=== PATIENT | male | born 1980 | race Caucasian/White ===

== ENCOUNTER 2022-04-01 17:00 | Emergency (ER) | payer MEDICAID ==
[~2022-04-01] VITALS: Ht 147.3 cm; Wt 61.2 kg
[2022-04-01 17:14] VITALS: BP 116/74
--- NOTE | 2022-04-01 17:21 | NUR ---
PT C/O BACK PAIN X2 WEEKS AFTER LIFTING BOTTLES.
[2022-04-01] MEDS ORDERED: KETOROLAC 60 MG/2 ML VIAL IM ONE ×2 (17:45→17:51)
[2022-04-01] MEDS ORDERED: IBUP-2213 PO (18:27)
[2022-04-01] MEDS ORDERED: ACET-8386 PO (18:27)
[2022-04-01 18:56] VITALS: BP 124/88
--- NOTE | 2022-04-01 18:57 | NUR ---
Patient discharged with v/s stable. Written and verbal after care instructions given and explained. Patient alert, oriented and verbalized understanding of instructions. Ambulatory with steady gait. All questions addressed prior to discharge. ID band removed. Patient advised to follow up with PMD. Rx of norco,motrin given. Patient educated on indication of medication including possible reaction and side effects. Opportunity to ask questions provided and answered.
== END 2022-04-01 18:57 | disposition home or self-care (01) ==
LOC: MED 17:00
DX: M54.50 Low back pain, unspecified (principal); E11.9 Type 2 diabetes mellitus without complications; F17.200 Nicotine dependence, unspecified, uncomplicated
CPT/HCPCS: 96372; 99283; J1885

== ENCOUNTER 2022-05-05 07:52 | Emergency (ER) | payer MEDICAID ==
[~2022-05-05] VITALS: Ht 158.8 cm; Wt 58.6 kg
[~2022-05-05 07:52] MED LIST: ACET-8386 PO; IBUP-2213 PO
[2022-05-05 08:03] VITALS: BP 132/74
[2022-05-05] MEDS ORDERED: NACL 0.9% 2,000 ML IV ONE (08:30)
[2022-05-05 09:07] LABS: BASOPHILS % (AUTO) 0.7 % (0.0-2.0); EOSINOPHILS # (AUTO) 0.1 K/uL (0-0.4); HEMOGLOBIN 15.7 g/dL (12.0-18.0); LYMPHOCYTES # (AUTO) 1.5 K/uL (2.0-11.5); LYMPHOCYTES % (AUTO) 24.4 % (20.5-51.1); MEAN CORPUSCULAR HEMOGLOBIN 32 pg (27-31); MEAN CORPUSCULAR HGB CONC 35 g/dL (33-37); MEAN CORPUSCULAR VOLUME 91.9 fL (80-94); MONOCYTES # (AUTO) 0.3 K/uL (0.8-1.0); MONOCYTES % (AUTO) 5.2 % (1.7-9.3); NEUTROPHILS # (AUTO) 4.1 K/uL (1.8-7.7); NEUTROPHILS % (AUTO) 67.7 % (42.2-75.2); PLATELET COUNT (AUTO) 192 K/uL (140-450); RED CELL DISTRIBUTION WIDTH 12.7 % (11.6-13.7); WHITE BLOOD COUNT (AUTO) 6.1 K/uL (4.8-10.8)
[2022-05-05 09:25] LABS: ALBUMIN 3.1 g/dL (3.4-5.0); ANION GAP 13.6 (8-16); CARBON DIOXIDE 28.2 mmol/L (21-32); CREATININE 0.8 mg/dL (0.6-1.3); POTASSIUM 3.8 mmol/L (3.5-5.1); TOTAL BILIRUBIN 0.5 mg/dL (0.0-1.0)
[2022-05-05] MEDS ORDERED: INSULIN REGULAR, HUMAN 100 UNIT/ML VIAL SUBQ ONE (09:50)
[2022-05-05 10:39] LABS: APPEARANCE,URINE CLEAR (CLEAR); BILIRUBIN,URINE NEGATIVE (NEGATIVE); BLOOD, URINE NEGATIVE (NEGATIVE); COLOR,URINE YELLOW (YELLOW); LEUKOCYTE ESTERASE ,URINE TRACE (NEGATIVE); NITRITE, URINE NEGATIVE (NEGATIVE); PH,URINE 5.5 (5.0-9.0); UGLUCOSE 3+ (NEGATIVE)
[2022-05-05 10:52] LABS: RBC,URINE 0-5 /HPF (0-5); WBC,URINE 0-5 /HPF (0-5); YEAST,URINE Moderate /HPF (None Seen)
[2022-05-05] MEDS ORDERED: NYST15CR10 TP (11:08)
[2022-05-05 11:58] VITALS: BP 122/70
== END 2022-05-05 11:59 | disposition home or self-care (01) ==
LOC: MED 07:52
DX: E11.65 Type 2 diabetes mellitus with hyperglycemia (principal); N48.1 Balanitis; F17.210 Nicotine dependence, cigarettes, uncomplicated; Z79.899 Other long term (current) drug therapy
CPT/HCPCS: 71045; 80053; 81001; 82009; 82803; 82948; 85025; 96360; 96361; 96372; 99284; J1815

== ENCOUNTER 2023-12-18 11:49 | Emergency (ER) | payer MEDICAID ==
[~2023-12-18] VITALS: Ht 157.5 cm; Wt 59.1 kg
[~2023-12-18 11:49] MED LIST changes: -ACET-8386 PO; +ACET-8905 PO; +NYST15CR10 TP
[2023-12-18 12:04] VITALS: BP 123/83; PULSE 83; RESP 18; TEMP 99.1; O2SAT 96
[2023-12-18 12:31] LABS: BASOPHILS # (AUTO) 0.1 K/uL (0.00-0.22); BASOPHILS % (AUTO) 0.6 % (0.0-2.0); EOSINOPHILS # (AUTO) 0.1 K/uL (0-0.4); EOSINOPHILS % (AUTO) 1.3 % (0.0-4.0); HEMATOCRIT 46.9 % (36-52); HEMOGLOBIN 16.2 g/dL (12.0-18.0); LYMPHOCYTES # (AUTO) 2.4 K/uL (2.0-11.5); LYMPHOCYTES % (AUTO) 22.2 % (20.5-51.1); MEAN CORPUSCULAR HEMOGLOBIN 32 pg (27-31); MEAN CORPUSCULAR HGB CONC 35 g/dL (33-37); MEAN CORPUSCULAR VOLUME 93.2 fL (80-94); MONOCYTES # (AUTO) 0.6 K/uL (0.8-1.0); MONOCYTES % (AUTO) 5.1 % (1.7-9.3); NEUTROPHILS # (AUTO) 7.6 K/uL (1.8-7.7); NEUTROPHILS % (AUTO) 70.8 % (42.2-75.2); PLATELET COUNT (AUTO) 253 K/uL (140-450); RED BLOOD CELL COUNT(AUTO) 5.03 MIL/uL (4.20-6.10); RED CELL DISTRIBUTION WIDTH 12.8 % (11.6-13.7); WHITE BLOOD COUNT (AUTO) 10.8 K/uL (4.8-10.8)
[2023-12-18 12:42] LABS: ANION GAP 11.9 (8-16); CALCIUM 8.4 mg/dL (8.5-10.1); CARBON DIOXIDE 27.2 mmol/L (21-32); CREATININE 1.3 mg/dL (0.6-1.3); POTASSIUM 4.1 mmol/L (3.5-5.1)
[2023-12-18 12:45] LABS: ALANINE AMINOTRANSFERASE 16 U/L (12-78); ALBUMIN 3.5 g/dL (3.4-5.0); ALKALINE PHOSPHATASE 151 U/L (50-136); BILIRUBIN,DIRECT 0.1 mg/dL (0.0-0.3); LIPASE 56 U/L (16-77); TOTAL BILIRUBIN 0.3 mg/dL (0.0-1.0); TOTAL PROTEIN, SERUM 7.5 g/dL (6.4-8.2)
[2023-12-18 12:47] LABS: APPEARANCE,URINE CLEAR (CLEAR); BILIRUBIN,URINE NEGATIVE (NEGATIVE); BLOOD, URINE NEGATIVE (NEGATIVE); COLOR,URINE YELLOW (YELLOW); LEUKOCYTE ESTERASE ,URINE NEGATIVE (NEGATIVE); NITRITE, URINE NEGATIVE (NEGATIVE); PROTEIN,URINE NEGATIVE (NEGATIVE); UGLUCOSE 3+ (NEGATIVE); UROBILINOGEN,URINE 0.2 EU/dL (0.2 - 1)
[2023-12-18 12:55] LABS: ASPARTATE AMINOTRANSFERASE 0 U/L (15-37)
[2023-12-18] MEDS: NACL 0.9% 2,000 ML IV ONE (12:55)
[2023-12-18] MEDS: INSULIN REGULAR, HUMAN 100 UNIT/ML VIAL IV ONE (13:02)
[2023-12-18 13:04] LABS: ACETONE, SERUM Negative (NEGATIVE)
[2023-12-18 14:56] VITALS: BP 104/66; PULSE 70; RESP 18; TEMP 98.8; O2SAT 96
== END 2023-12-18 14:54 | disposition home or self-care (01) ==
LOC: MED 11:49
DX: E10.65 Type 1 diabetes mellitus with hyperglycemia (principal); R03.0 Elevated blood-pressure reading, without diagnosis of hypertension; Z79.1 Long term (current) use of non-steroidal anti-inflammatories (NSAID); Z79.899 Other long term (current) drug therapy
CPT/HCPCS: 36415; 80048; 80076; 81003; 82009; 82803; 82948; 83690; 85025; 96361; 96374; 99283; J1815; J7030

== ENCOUNTER 2024-01-02 17:48 | Emergency (ER) | payer MEDICAID ==
[~2024-01-02] VITALS: Ht 149.9 cm; Wt 58.7 kg
[2024-01-02 18:01] VITALS: BP 119/82; PULSE 87; RESP 20; TEMP 98.7; O2SAT 97
== END 2024-01-02 19:07 | disposition left against medical advice (07) ==
LOC: MED 17:48
DX: R53.1 Weakness (principal); Z53.21 Procedure and treatment not carried out due to patient leaving prior to being seen by health care provider

== ENCOUNTER 2024-02-05 17:50 | Emergency (ER) | payer MEDICAID ==
[~2024-02-05] VITALS: Ht 157.5 cm; Wt 57.3 kg
[2024-02-05 18:06] VITALS: BP 126/60; PULSE 76; RESP 15; TEMP 98.5; O2SAT 98
[2024-02-05] MEDS: NACL 0.9% 2,000 ML IV ONE (18:56)
[2024-02-05 19:06] LABS: BASOPHILS # (AUTO) 0.1 K/uL (0.00-0.22); BASOPHILS % (AUTO) 0.6 % (0.0-2.0); EOSINOPHILS # (AUTO) 0.1 K/uL (0-0.4); EOSINOPHILS % (AUTO) 1.2 % (0.0-4.0); HEMATOCRIT 46.1 % (36-52); HEMOGLOBIN 15.6 g/dL (12.0-18.0); LYMPHOCYTES # (AUTO) 2.3 K/uL (2.0-11.5); LYMPHOCYTES % (AUTO) 24.7 % (20.5-51.1); MEAN CORPUSCULAR HEMOGLOBIN 32 pg (27-31); MEAN CORPUSCULAR HGB CONC 34 g/dL (33-37); MEAN CORPUSCULAR VOLUME 94.6 fL (80-94); MONOCYTES # (AUTO) 0.6 K/uL (0.8-1.0); NEUTROPHILS # (AUTO) 6.4 K/uL (1.8-7.7); NEUTROPHILS % (AUTO) 67.5 % (42.2-75.2); PLATELET COUNT (AUTO) 216 K/uL (140-450); RED BLOOD CELL COUNT(AUTO) 4.87 MIL/uL (4.20-6.10); RED CELL DISTRIBUTION WIDTH 12.8 % (11.6-13.7); WHITE BLOOD COUNT (AUTO) 9.5 K/uL (4.8-10.8)
[2024-02-05 19:18] LABS: BILIRUBIN,URINE NEGATIVE (NEGATIVE); BLOOD, URINE NEGATIVE (NEGATIVE); COLOR,URINE YELLOW (YELLOW); LEUKOCYTE ESTERASE ,URINE TRACE (NEGATIVE); NITRITE, URINE NEGATIVE (NEGATIVE); PROTEIN,URINE NEGATIVE (NEGATIVE); UGLUCOSE 3+ (NEGATIVE); UROBILINOGEN,URINE 0.2 EU/dL (0.2 - 1)
[2024-02-05 19:20] VITALS: O2SAT 98
[2024-02-05 19:20] LABS: APPEARANCE,URINE HAZY (CLEAR)
[2024-02-05 19:21] LABS: RBC,URINE 0 /HPF (0-5)
[2024-02-05 19:22] LABS: BACTERIA,URINE 1+ /HPF (None Seen); MUCUS,URINE None Seen /LPF (None Seen); SQUAMOUS EPITHELIAL CELL,UR 0-3 (FEW) /LPF (0-3 (FEW)); WBC,URINE 0-5 /HPF (0-5)
[2024-02-05 19:22] LABS: CALCIUM 8.4 mg/dL (8.5-10.1); CARBON DIOXIDE 25.9 mmol/L (21-32); CREATININE 1.2 mg/dL (0.6-1.3); POTASSIUM 3.9 mmol/L (3.5-5.1)
[2024-02-05 19:27] LABS: ALANINE AMINOTRANSFERASE 24 U/L (12-78); ALBUMIN 3.2 g/dL (3.4-5.0); ALKALINE PHOSPHATASE 136 U/L (50-136); ASPARTATE AMINOTRANSFERASE 16 U/L (15-37); LIPASE 53 U/L (16-77); MAGNESIUM 1.5 mg/dL (1.8-2.4); PHOSPHORUS 3.6 mg/dL (2.5-4.9); TOTAL BILIRUBIN 0.3 mg/dL (0.0-1.0); TOTAL PROTEIN, SERUM 7.1 g/dL (6.4-8.2)
[2024-02-05 19:31] LABS: FLU A ANTIGEN negative (NEGATIVE); FLU B ANTIGEN negative (NEGATIVE)
[2024-02-05 19:36] VITALS: PULSE 81; O2SAT 96
[2024-02-05] MEDS: INSULIN REGULAR, HUMAN 100 UNIT/ML VIAL IVP ONE (20:04)
[2024-02-05] MEDS: POTASSIUM CHLORIDE 20% 40 MEQ/15 ML UDC PO ONE (20:05)
[2024-02-05] MEDS: ACETAMINOPHEN/CODEINE 300/30MG 1 TAB PO ONE (20:05)
[2024-02-05] MEDS: MAG SULF 2000 MG/WATER PREMIX 50 ML IV ONE (20:11)
[2024-02-05 20:22] VITALS: BP 125/73; PULSE 74; RESP 19; O2SAT 97
[2024-02-05] MEDS ORDERED: ACET500T99 PO (21:44)
[2024-02-05] MEDS ORDERED: PROM118S5 PO (21:44)
== END 2024-02-05 21:00 | disposition home or self-care (01) ==
LOC: MED 17:50
DX: U07.1 COVID-19 (principal); E11.65 Type 2 diabetes mellitus with hyperglycemia; Z79.1 Long term (current) use of non-steroidal anti-inflammatories (NSAID); Z79.899 Other long term (current) drug therapy; Z79.4 Long term (current) use of insulin; Z79.84 Long term (current) use of oral hypoglycemic drugs
CPT/HCPCS: 36415; 71045; 80048; 80076; 81001; 82948; 83690; 83735; 83930; 84100; 84484; 85025; 87086; 87426; 87804; 93005; 96361; 96365; 96375; 99285; J1815; J3475; J7030; Q0092

== ENCOUNTER 2024-02-10 09:25 | Emergency (ER) | payer MEDICAID ==
[~2024-02-10] VITALS: Ht 144.8 cm; Wt 55.3 kg
[~2024-02-10 09:25] MED LIST changes: +ACET500T99 PO; +PROM118S5 PO
[2024-02-10 09:35] VITALS: BP 108/82; PULSE 78; RESP 16; TEMP 97.9; O2SAT 98
[2024-02-10] MEDS ORDERED: IBUP-2213 PO (10:59)
[2024-02-10] MEDS: IBUPROFEN 600 MG TAB PO ONE (11:05)
[2024-02-10 11:30] VITALS: BP 134/70; PULSE 79; RESP 16; TEMP 97.3; O2SAT 97
== END 2024-02-10 11:30 | disposition home or self-care (01) ==
LOC: MED 09:25
DX: S83.91XA Sprain of unspecified site of right knee, initial encounter (principal); M76.51 Patellar tendinitis, right knee; E11.9 Type 2 diabetes mellitus without complications; Z79.899 Other long term (current) drug therapy; X58.XXXA Exposure to other specified factors, initial encounter; Y92.89 Other specified places as the place of occurrence of the external cause; Y93.89 Activity, other specified; Y99.8 Other external cause status
CPT/HCPCS: 73562; 99283